=== PATIENT | male | born 1980 | race Caucasian/White ===

== ENCOUNTER 2019-11-17 20:06 | Inpatient (IN) | payer BC, OTHER ==
[2019-11-17] MEDS ORDERED: Haloperidol Lactate 5 MG/ML SDV IM ONE (20:08)
[2019-11-17] MEDS ORDERED: diphenhydrAMINE 50 MG/ML SDV IVPUSH ONE (20:08)
[2019-11-17] MEDS ORDERED: Famotidine 20 MG/2 ML SDV IVPUSH ONE (20:09)
[2019-11-17] MEDS ORDERED: Lactated Ringers 1,000 ML IV ONE (20:10)
[2019-11-17] MEDS ORDERED: Sodium Chloride 0.9% 10 ML Syringe FLUSH PRN (20:10)
[2019-11-17] MEDS ORDERED: Sodium Chloride 0.9% 2.5 ML Syringe FLUSH PRN (20:10)
[2019-11-17] MEDS ORDERED: HYDROmorphone 2 MG/ML Syringe IVPUSH ONE (20:28)
[2019-11-17 20:55] LABS: BLOOD UREA NITROGEN,BUN 12 mg/dL (7.0-18.0); CARBON DIOXIDE,CO2 18.3 mmol/L (21.0-32.0); CHLORIDE,CL 99 mmol/L (98-107); GLUCOSE RANDOM 219 mg/dL (74-106); LIPASE 525 U/L (73-393); POTASSIUM,K 3.3 mmol/L (3.5-5.1); SODIUM,NA 136 mmol/L (136-148)
[2019-11-17] MEDS ORDERED: Iopamidol 755 Mg/ML 100 ML Bottle IVPUSH STA (21:30)
--- NOTE | 2019-11-17 22:08 | CT ---
INDICATION: Epigastric pain for 1 day. History of gastric bypass in 2018. COMPARISON: None available TECHNIQUE: CT examination of the abdomen and pelvis was performed with the uneventful intravenous administration of 100 cc of Isovue 370 while 3 mm thick axial sections were obtained from the lung bases through the pubic symphysis. Oral contrast was not administered. Please note that all CT scans at this facility use dose modulation, iterative reconstruction, and/or weight-based dosing when appropriate to reduce radiation dose to as low as reasonably achievable. FINDINGS: In the abdomen, the liver, spleen, pancreas, and ADRENALS are normal in appearance. The kidneys are normal in appearance. The gallbladder is normal in appearance. The abdominal aorta is normal in caliber with no sign of dilatation. There is no sign of retroperitoneal mass or adenopathy. There are multiple lines of surgical anai in the area of the gastric fundus consistent with gastric bypass surgery. There is a small bowel anastomosis in the left upper quadrant with no sign of any structure. An additional small bowel anastomosis is seen in the left lower quadrant and left upper pelvis, again without stricture. The distal stomach, the rest of the loops of small bowel, and colon in the abdomen are normal in appearance. There is a small fat containing periumbilical hernia. The retrocecal appendix is seen anterior to the right kidney. It is normal in appearance, with no sign of any inflammatory process. The loops of small bowel and colon in the pelvis are normal in appearance. The prostate is moderately enlarged and is otherwise normal in appearance. The urinary bladder is normal in appearance. There is no sign of pelvic or inguinal mass or adenopathy. There is fluid in the mildly distended left inguinal canal with inflammatory stranding of the fat located in the superior right inguinal canal, suggesting infarction of fat herniated into a small right direct inguinal hernia. There is a small fat containing left indirect inguinal hernia. There is no sign of free air or free fluid in the abdomen or pelvis. The lung bases are clear. There is mild scoliosis of the thoracic and lumbar spine convex towards the left. There is mild disc degenerative disease at L1-2, L4-5, and L5-S1. IMPRESSION: CT of the abdomen shows satisfactory appearance of changes of gastric bypass surgery with no sign of bowel distention or bowel leak. No sign of a hiatal hernia. Patent small bowel anastomoses in the left upper quadrant and the left lower quadrant/left upper pelvis. CT of the pelvis shows moderate enlargement of the prostate. Fluid and edematous fat in the right inguinal canal consistent with probable infarction of peritoneal fat located within a small direct inguinal hernia. Small direct left inguinal hernia. Please note that all CT scans at this facility use dose modulation, iterative reconstruction, and/or weight-based dosing when appropriate to reduce radiation dose to as low as reasonably achievable. Dictated by Abe Philip MD @ Nov 17 2019 9:58PM Signed by Dr. Abe Philip @ Nov 17 2019 10:07PM
[2019-11-17] MEDS ORDERED: Morphine 4 MG/ML Syringe IVPUSH ONE (22:35)
[2019-11-17] MEDS ORDERED: Potassium Chloride Riders 40 MEQ in Premix Bag 1 BAG IV ONE (22:59)
[2019-11-17] MEDS ORDERED: Albuterol/Ipratropium 3.0-0.5 MG/3 ML Neb Soln NEB PRN (23:00)
[2019-11-17] MEDS ORDERED: Lactated Ringers 1,000 ML IV SCH (23:00)
[2019-11-18] MEDS: HYDROmorphone 2 MG/ML Syringe IVPUSH PRN ×3 (00:09→05:08)
[2019-11-18] MEDS: Ondansetron 4 MG/2 ML SDV IVPUSH PRN ×6 (00:12→22:20)
[2019-11-18] MEDS: Pantoprazole 40 MG in Sodium Chloride 0.9% 10 ML IV SCH ×2 (00:38→22:23)
[2019-11-18] MEDS: Enoxaparin 40 MG/0.4 ML Syringe SUBCUT SCH ×2 (00:40→22:23)
--- NOTE | 2019-11-18 04:26 | EDM.PDOC ---
ED HPI GENERAL MEDICAL PROBLEM - General Chief Complaint: Abdominal Pain Stated Complaint: ABDOMINAL PAIN Time Seen by Provider: 11/17/19 20:08 - History of Present Illness INITIAL COMMENTS - FREE TEXT/NARRATIVE: CHIEF COMPLAINT(S): Abdominal pain HISTORY OF PRESENT ILLNESS: This is a 38-year-old man without any reported past medical history who comes to the emergency department with a chief complaint of abdominal pain. The patient states that he is experiencing abdominal pain in the epigastric and left upper quadrant region. He states that this pain is going on for approximately 2 to 3 days. He states that he was evaluated by his PCP who stated that he had a stomach virus. He states that he tested for coronavirus as it was negative. He states that he has not had any nausea or vomiting but states that this pain is unrelenting. He denies any history of peptic ulcer disease, gastritis, or alcohol abuse. He denies any history of pancreatitis. He states that he has not had any hematochezia or melena. He states that he has not tried any pain medications. He describes the pain as sharp without any radiation. He describes the pain as 10 out of 10 and unrelenting. He denies any aggravating factors. He denies any relieving factors. REVIEW OF SYSTEMS: Constitutional: Denies fever, chills. Eyes: Denies eye pain Ears, Nose, Mouth, & Throat: Denies earache Cardiovascular: Denies chest pain Respiratory: Denies shortness of breath Gastrointestinal: Positive for abdominal pain. Denies nausea, vomiting, diarrhea, hematochezia, melena, hematemesis Genitourinary: Denies hematuria Skin:Denies a rash Neurological: Denies blurred vision Psychiatric: Denies depression PAST MEDICAL HISTORY: As per history of present illness and as reviewed below otherwise noncontributory. SURGICAL HISTORY: As per history of present illness and as reviewed below otherwise noncontributory. SOCIAL HISTORY: As per history of present illness and as reviewed below otherwise noncontributory. FAMILY HISTORY: As per history of present illness and as reviewed below otherwise noncontributory. EXAMINATION OF ORGAN SYSTEMS/BODY AREAS: Constitutional: Blood pressure was 146/96, heart rate 104, respiratory rate 24 with an oxygen saturation of 100% on room air. Temperature 35.8 General: Young man who is writhing around in pain on the stretcher and moaning Psychiatric: Appropriate mood and affect. Eyes: No scleral icterus or conjunctival erythema ENMT: Moist mucous membranes. No pharyngeal erythema Cardiovascular: Tachycardic but regular no gallops, murmurs, or rubs. Bilateral upper extremity pulses symmetric and intact. No peripheral edema. No JVD. Respiratory: Lungs clear to auscultation bilaterally. No wheezes, rales, or rhonchi. Gastrointestinal: Soft, diffusely tender to palpation, nondistended. No rebound or guarding. Negative Pinedo's and McBurney's. Normoactive bowel sounds Genitourinary: No suprapubic tenderness Musculoskeletal: Normal range of motion. Skin: No lesions or abrasions. Neurological: Alert, GCS 15 MEDICAL DECISION MAKING AND COURSE IN THE ED WITH INTERPRETATION/REVIEW OF DIAGNOSTIC STUDIES: This is a 38-year-old man without any significant past medical history who comes to the emergency department with 3 days of unrelenting epigastric and left upper quadrant pain with a nonsurgical abdomen on examination who is mildly tachycardic. At this time we will provide the patient with Haldol and Benadryl for pain relief. We will obtain CBC, CMP, and lipase. Will start 1 L of lactated Ringer's bolus. Laboratory: CBC reveals a leukocytosis of 11.7 otherwise unremarkable. CMP reveals hypokalemia at 3.3 and metabolic acidosis with a bicarbonate of 18.3. Troponin is negative. Lipase is elevated at 525. Coronavirus is negative. On reevaluation the patient continued to have unrelenting pain therefore I provided the patient with 1 mg of IV Dilaudid. At this time given the continued pain will obtain a CT abdomen pelvis. The patient does have indication of pancreatitis on laboratory analysis. The radiological images were viewed by myself along with reading the report from the radiologist. CT abdomen pelvis reveals satisfactory appearance of the gastric bypass surgery with no signs of bowel distention or bowel leak. There is no signs of hiatal hernia. There is a patent small bowel anastomoses in the left upper quadrant and left lower quadrant. There is enlargement of the prostate and fluid and edematous fat in the right inguinal canal consistent with probable infarction of peritoneal fat located within a small direct hernia On reevaluation, the patient was sleeping comfortably on the stretcher however given his acute pancreatitis I did discuss with him I like to admit him to the hospital. He was amenable to this plan. Therefore I contacted Dr. Andres and she accepted the patient DISPOSITION: The patient was admitted to the hospital in stable condition CONDITION: Fair PROCEDURES: None FINAL IMPRESSION(S)/DIAGNOSES: 1. Acute epigastric pain secondary to acute pancreatitis 2. Acute metabolic acidosis likely secondary to #1 Heladio Ivey M.D. Abdominal Pain Score (Numeric/FACES): 2 - Related Data Allergies Allergy/AdvReac Type Severity Reaction Status Date / Time amoxicillin Allergy Other Verified 11/18/19 00:26 Penicillins Allergy Other Verified 11/18/19 00:26 Home Meds: Home Meds . [No Known Home Meds] 11/18/19 [History] Past Medical History - Infectious Disease History Infectious Disease History: Reports: None - Past Surgical History GI Surgical History: Reports: Bariatric Procedure, Hernia, Abdominal, Hernia, Inguinal Social & Family History - Family History Family Medical History: Noncontributory - Tobacco Use Smoking Status *Q: Never Smoker - Caffeine Use Caffeine Use: Reports: None - Recreational Drug Use Recreational Drug Use: No ED ROS GENERAL - Review of Systems Review Of Systems: See Below ED EXAM, GENERAL - Physical Exam Exam: See Below Course - Vital Signs Last Recorded V/S: Last Vital Signs Temp 36.0 C L 11/18/19 00:49 Pulse 73 11/18/19 00:49 Resp 18 11/18/19 00:49 BP 148/89 H 11/18/19 00:49 Pulse Ox 96 11/18/19 00:49 - Orders/Labs/Meds Orders: Active Orders 24 hr Category Date Time Status Admission Status [Patient Status] [ADT] Stat ADT 11/17/19 22:34 Active Ambulate [RC] ASDIRECTED Care 11/17/19 23:00 Active Antiembolic Devices [RC] PER UNIT ROUTINE Care 11/17/19 23:01 Active Blood Glucose Check, Bedside [RC] Q6HR Care 11/17/19 23:01 Active Oxygen Therapy [RC] PRN Care 11/17/19 23:00 Active Pulse Oximetry [RC] PRN Care 11/17/19 23:00 Active RT Aerosol Therapy [RC] ASDIRECTED Care 11/17/19 23:01 Active VTE/DVT Education [RC] PER UNIT ROUTINE Care 11/17/19 23:00 Active Vital Signs [RC] Q4H Care 11/17/19 23:00 Active Nothing per Oral Now Diet [DIET] Diet 11/17/19 Dinner Active BMP [BASIC METABOLIC PANEL,BMP] [CHEM] AM Lab 11/18/19 05:11 Ordered CBC WITH AUTO DIFF [HEME] AM Lab 11/18/19 05:11 Ordered MAGNESIUM [CHEM] AM Lab 11/18/19 05:11 Ordered PHOSPHORUS [CHEM] AM Lab 11/18/19 05:11 Ordered Albuterol/Ipratropium [DuoNeb 3.0-0.5 MG/3 ML] Med 11/17/19 23:00 Active 3 ml NEB Q4HRRT PRN Enoxaparin [Lovenox] Med 11/17/19 23:00 Active 40 mg SUBCUT Q24H HYDROmorphone [Dilaudid] Med 11/17/19 23:00 Active 0.5 mg IVPUSH Q3H PRN Lactated Ringers [Ringers, Lactated] 1,000 ml Med 11/17/19 23:00 Active IV ASDIRECTED Ondansetron [Zofran] Med 11/17/19 23:00 Active 4 mg IVPUSH Q4H PRN Pantoprazole [ProTONIX IV] 40 mg Med 11/17/19 23:15 Active Sodium Chloride 0.9% [Normal Saline] 10 ml IV Q24H Sodium Chloride 0.9% [Saline Flush] Med 11/17/19 20:10 Active 10 ml FLUSH ASDIRECTED PRN Sodium Chloride 0.9% [Saline Flush] Med 11/17/19 20:10 Active 2.5 ml FLUSH ASDIRECTED PRN Saline Lock Insert [OM.PC] Stat Oth 11/17/19 20:10 Ordered Sequential Compression Device [OM.PC] Per Unit Routine Oth 11/17/19 23:00 Ordered Medication Orders Albuterol/Ipratropium (Duoneb 3.0-0.5 Mg/3 Ml) 3 ml NEB Q4HRRT PRN PRN Reason: Shortness Of Breath/wheezing Enoxaparin Sodium (Lovenox) 40 mg SUBCUT Q24H ALEXI Last Admin: 11/18/19 00:40 Dose: 40 mg Documented by: DIYA Hydromorphone HCl (Dilaudid) 0.5 mg IVPUSH Q3H PRN PRN Reason: Pain (severe 7-10) Last Admin: 11/18/19 02:37 Dose: 0.5 mg Documented by: Admin: 11/18/19 00:09 Dose: 0.5 mg Documented by: CADE Lactated Ringer's (Ringers, Lactated) 1,000 mls @ 125 mls/hr IV ASDIRECTED ALEXI Last Admin: 11/18/19 00:37 Dose: 125 mls/hr Documented by: DIYA Pantoprazole Sodium 40 mg/ (Sodium Chloride) 10 mls @ 300 mls/hr IV Q24H ALEXI Last Admin: 11/18/19 00:38 Dose: 300 mls/hr Documented by: DYIA Influenza Virus Vaccine (Afluria Quad 2019- (3yr Up)) 60 mcg IM .ONCE ONE Stop: 11/18/19 09:01 Ondansetron HCl (Zofran) 4 mg IVPUSH Q4H PRN PRN Reason: Nausea/Vomiting Last Admin: 11/18/19 04:13 Dose: 4 mg Documented by: Admin: 11/18/19 00:13 Dose: 4 mg Documented by: Admin: 11/18/19 00:12 Dose: 4 mg Documented by: CADE Sodium Chloride (Saline Flush) 10 ml FLUSH ASDIRECTED PRN PRN Reason: Keep Vein Open Last Admin: 11/17/19 20:17 Dose: 10 ml Documented by: CADE Sodium Chloride (Saline Flush) 2.5 ml FLUSH ASDIRECTED PRN PRN Reason: Keep Vein Open Last Admin: 11/17/19 20:17 Dose: 2.5 ml Documented by: CADE Labs: Laboratory Tests 11/17/19 11/17/19 11/17/19 Range/Units 20:24 20:24 20:24 WBC 11.70 H (4.0-11.0) K/uL RBC 4.76 (4.50-5.90) M/uL Hgb 12.9 L (13.0-17.0) g/dL Hct 39.3 (38.0-50.0) % MCV 82.6 (80.0-98.0) fL MCH 27.1 (27.0-32.0) pg MCHC 32.8 (31.0-37.0) g/dL RDW Std Deviation 36.8 (28.0-62.0) fl RDW Coeff of Alicja 12 (11.0-15.0) % Plt Count 388 (150-400) K/uL MPV 10.70 (7.40-12.00) fL Neut % (Auto) 86.9 H (48.0-80.0) % Lymph % (Auto) 6.3 L (16.0-40.0) % [place] % (Auto) 6.4 (0.0-15.0) % Eos % (Auto) 0.2 (0.0-7.0) % Baso % (Auto) 0.2 (0.0-1.5) % Neut # (Auto) 10.2 H (1.4-5.7) K/uL Lymph # (Auto) 0.7 (0.6-2.4) K/uL [place] # (Auto) 0.8 (0.0-0.8) K/uL Eos # (Auto) 0.0 (0.0-0.7) K/uL Baso # (Auto) 0.0 (0.0-0.1) K/uL Nucleated RBC % 0.0 /100WBC Nucleated RBCs # 0 K/uL Sodium 136 (136-148) mmol/L Potassium 3.3 L (3.5-5.1) mmol/L Chloride 99 (98-107) mmol/L Carbon Dioxide 18.3 L (21.0-32.0) mmol/L BUN 12 (7.0-18.0) mg/dL Creatinine 1.3 (0.8-1.3) mg/dL Est Cr Clr Drug Dosing 86.22 mL/min Estimated GFR (MDRD) > 60.0 ml/min Glucose 219 H (74-106) mg/dL Calcium 9.3 (8.5-10.1) mg/dL Total Bilirubin 0.6 (0.2-1.0) mg/dL AST 17 (15-37) IU/L ALT 29 (14-63) IU/L Alkaline Phosphatase 61 (46-116) U/L Troponin I < 0.050 (0.000-0.056) ng/mL Total Protein 7.3 (6.4-8.2) g/dL Albumin 4.5 (3.4-5.0) g/dL Globulin 2.8 (2.6-4.0) g/dL Albumin/Globulin Ratio 1.6 (0.9-1.6) Lipase 525 H (73-393) U/L SARS-CoV-2 RNA (BARBY) (NEGATIVE) 11/17/19 Range/Units 22:30 WBC (4.0-11.0) K/uL RBC (4.50-5.90) M/uL Hgb (13.0-17.0) g/dL Hct (38.0-50.0) % MCV (80.0-98.0) fL MCH (27.0-32.0) pg MCHC (31.0-37.0) g/dL RDW Std Deviation (28.0-62.0) fl RDW Coeff of Alicja (11.0-15.0) % Plt Count (150-400) K/uL MPV (7.40-12.00) fL Neut % (Auto) (48.0-80.0) % Lymph % (Auto) (16.0-40.0) % [place] % (Auto) (0.0-15.0) % Eos % (Auto) (0.0-7.0) % Baso % (Auto) (0.0-1.5) % Neut # (Auto) (1.4-5.7) K/uL Lymph # (Auto) (0.6-2.4) K/uL [place] # (Auto) (0.0-0.8) K/uL Eos # (Auto) (0.0-0.7) K/uL Baso # (Auto) (0.0-0.1) K/uL Nucleated RBC % /100WBC Nucleated RBCs # K/uL Sodium (136-148) mmol/L Potassium (3.5-5.1) mmol/L Chloride (98-107) mmol/L Carbon Dioxide (21.0-32.0) mmol/L BUN (7.0-18.0) mg/dL Creatinine (0.8-1.3) mg/dL Est Cr Clr Drug Dosing mL/min Estimated GFR (MDRD) ml/min Glucose (74-106) mg/dL Calcium (8.5-10.1) mg/dL Total Bilirubin (0.2-1.0) mg/dL AST (15-37) IU/L ALT (14-63) IU/L Alkaline Phosphatase (46-116) U/L Troponin I (0.000-0.056) ng/mL Total Protein (6.4-8.2) g/dL Albumin (3.4-5.0) g/dL Globulin (2.6-4.0) g/dL Albumin/Globulin Ratio (0.9-1.6) Lipase (73-393) U/L SARS-CoV-2 RNA (BARBY) NEGATIVE (NEGATIVE) Meds: Medications Generic Name Dose Route Start Last Admin Trade Name Freq PRN Reason Stop Dose Admin Albuterol/Ipratropium 3 ml 11/17/19 23:00 Duoneb 3.0-0.5 Mg/3 Ml NEB Q4HRRT PRN Shortness Of Breath/wheezing Enoxaparin Sodium 40 mg 11/17/19 23:00 11/18/19 00:40 Lovenox SUBCUT 40 mg Q24H ALEXI Administration Hydromorphone HCl 0.5 mg 11/17/19 23:00 11/18/19 02:37 Dilaudid IVPUSH 0.5 mg Q3H PRN Administration Pain (severe 7-10) Lactated Ringer's 1,000 mls @ 125 mls/hr 11/17/19 23:00 11/18/19 00:37 Ringers, Lactated IV 125 mls/hr ASDIRECTED ALEXI Administration Pantoprazole Sodium 40 mg/ 10 mls @ 300 mls/hr 11/17/19 23:15 11/18/19 00:38 Sodium Chloride IV 300 mls/hr Q24H ALEXI Administration Influenza Virus Vaccine 60 mcg 11/18/19 09:00 Afluria Quad 2020-21 (3yr Up) IM 11/18/19 09:01 .ONCE ONE Ondansetron HCl 4 mg 11/17/19 23:00 11/18/19 04:13 Zofran IVPUSH 4 mg Q4H PRN Administration Nausea/Vomiting Sodium Chloride 10 ml 11/17/19 20:10 11/17/19 20:17 Saline Flush FLUSH 10 ml ASDIRECTED PRN Administration Keep Vein Open Sodium Chloride 2.5 ml 11/17/19 20:10 11/17/19 20:17 Saline Flush FLUSH 2.5 ml ASDIRECTED PRN Administration Keep Vein Open Discontinued Medications Generic Name Dose Route Start Last Admin Trade Name Enriqueq PRN Reason Stop Dose Admin Diphenhydramine HCl 50 mg 11/17/19 20:08 11/17/19 20:16 Benadryl IVPUSH 11/17/19 20:09 50 mg ONETIME ONE Administration Famotidine 20 mg 11/17/19 20:09 11/17/19 20:16 Pepcid IVPUSH 11/17/19 20:10 20 mg ONETIME ONE Administration Haloperidol Lactate 5 mg 11/17/19 20:08 11/17/19 20:16 Haldol IM 11/17/19 20:09 5 mg ONETIME ONE Administration Hydromorphone HCl 1 mg 11/17/19 20:28 11/17/19 20:32 Dilaudid IVPUSH 11/17/19 20:29 1 mg ONETIME ONE Administration Lactated Ringer's 1,000 mls @ 999 mls/hr 11/17/19 20:10 11/17/19 20:15 Ringers, Lactated IV 11/17/19 21:10 999 mls/hr .BOLUS ONE Administration Potassium Chloride 40 meq/ 100 mls @ 25 mls/hr 11/17/19 22:59 11/18/19 01:29 Premix IV 11/18/19 02:58 25 mls/hr ONETIME ONE Administration Iopamidol 100 ml 11/17/19 21:30 11/17/19 21:30 Isovue-370 (76%) IVPUSH 11/17/19 21:31 100 ml ONETIME STA Administration Morphine Sulfate 4 mg 11/17/19 22:35 11/17/19 22:44 Morphine IVPUSH 11/17/19 22:36 4 mg ONETIME ONE Administration Departure - Departure Time of Disposition: 22:34 Disposition: Refer to Observation Clinical Impression: Pancreatitis Qualifiers: Chronicity: acute Pancreatitis type: unspecified pancreatitis type Acute pancreatitis complication: no infection or necrosis Qualified Code(s): K85.90 - Acute pancreatitis without necrosis or infection, unspecified - Discharge Information Sepsis Event Note (ED) - Evaluation Sepsis Screening Result: No Definite Risk - Focused Exam Vital Signs: Vital Signs Temp Pulse Resp BP Pulse Ox 11/17/19 20:09 35.8 C L 104 H 24 H 146/96 H 100 - My Orders Last 24 Hours: My Active Orders 11/17/19 20:10 Sodium Chloride 0.9% [Saline Flush] 10 ml FLUSH ASDIRECTED PRN Sodium Chloride 0.9% [Saline Flush] 2.5 ml FLUSH ASDIRECTED PRN Saline Lock Insert [OM.PC] Stat 11/17/19 22:34 Admission Status [Patient Status] [ADT] Stat - Assessment/Plan Last 24 Hours: My Active Orders 11/17/19 20:10 Sodium Chloride 0.9% [Saline Flush] 10 ml FLUSH ASDIRECTED PRN Sodium Chloride 0.9% [Saline Flush] 2.5 ml FLUSH ASDIRECTED PRN Saline Lock Insert [OM.PC] Stat 11/17/19 22:34 Admission Status [Patient Status] [ADT] Stat
[2019-11-18] MEDS ORDERED: Haloperidol Lactate 5 MG/ML SDV IM ONE (05:30)
[2019-11-18] MEDS ORDERED: HYDROmorphone 1 MG/ML Syringe IVPUSH ONE (05:30)
[2019-11-18] MEDS ORDERED: diphenhydrAMINE 50 MG/ML SDV IVPUSH ONE (05:31)
[2019-11-18 07:03] LABS: BLOOD UREA NITROGEN,BUN 12 mg/dL (7.0-18.0); CHLORIDE,CL 99 mmol/L (98-107); GLUCOSE RANDOM 172 mg/dL (74-106); POTASSIUM,K 3.9 mmol/L (3.5-5.1); SODIUM,NA 136 mmol/L (136-148)
--- NOTE | 2019-11-18 08:03 | PCM.HP.2 ---
H&P History of Present Illness - General Date of Service: 11/18/19 Admit Problem/Dx: Admission Diagnosis/Problem Admission Diagnosis/Problem Pancreatitis Source of Information: Patient History Limitations: Reports: No Limitations - History of Present Illness Initial Comments - Free Text/Narative: This 38-year-old male with past medical history of hypertension, gastric bypass, and abdominal hernia repair presented to the ER last evening with concerns of severe abdominal pain. This pain is located in the epigastric and left upper quadrant. He reports nausea and vomiting along with this and loss of appetite. He denies any diarrhea black or bloody bowel movements and no coffee-ground emesis. He reports that this has been going on for the last few days with worsening last night. He denies any history of this in the past. His gastric bypass was 1 year ago. Nothing makes the pain better except for rest. And eating makes it worse. He reports the pain is radiating to the back. No chest pain or shortness of breath no fevers or chills. No lower abdominal pain. No dysuria or trouble with urination. He denies alcohol use. Denies any current tobacco use was a previous smoker. No recreational drug use. In the ER lab work was obtained mild leukocytosis at 11,700 noted. Lipase was found to be elevated at 525. CT of his abdomen and pelvis were obtained which shows Nothing acute with pancreas. 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 He was given IV pain medication along with IV fluids. He will be admitted for acute pancreatitis. COVID swab negative in the ER. Abdominal Pain Score (Numeric/FACES): 2 - Related Data Allergies/Adverse Reactions: Allergies Allergy/AdvReac Type Severity Reaction Status Date / Time amoxicillin Allergy Other Verified 11/18/19 00:26 Penicillins Allergy Other Verified 11/18/19 00:26 Home Medications: Home Meds . [No Known Home Meds] 11/18/19 [History] Past Medical History - Infectious Disease History Infectious Disease History: Reports: None - Past Surgical History GI Surgical History: Reports: Bariatric Procedure, Hernia, Abdominal, Hernia, Inguinal Social & Family History - Family History Family Medical History: Noncontributory - Tobacco Use Smoking Status *Q: Never Smoker - Caffeine Use Caffeine Use: Reports: None - Recreational Drug Use Recreational Drug Use: No H&P Review of Systems - Review of Systems: Review Of Systems: See Below General: Denies: Fever, Chills, Malaise HEENT: Reports: No Symptoms. Denies: Headaches, Vertigo Pulmonary: Reports: No Symptoms. Denies: Shortness of Breath, Cough, Sputum Cardiovascular: Reports: No Symptoms Gastrointestinal: Reports: Abdominal Pain, Decreased Appetite, Nausea, Vomiting. Denies: Black Stool, Bloody Stool, Diarrhea, Melena Genitourinary: Reports: No Symptoms. Denies: Dysuria, Frequency, Burning Musculoskeletal: Reports: No Symptoms. Denies: Arm Pain, Back Pain Skin: Reports: No Symptoms Psychiatric: Reports: No Symptoms Neurological: Reports: No Symptoms Hematologic/Lymphatic: Reports: No Symptoms Immunologic: Reports: No Symptoms Exam - Exam Exam: See Below - Vital Signs Vital Signs: Last Vital Signs Temp 96.7 F L 11/18/19 04:33 Pulse 103 H 11/18/19 04:33 Resp 20 11/18/19 04:33 BP 168/108 H 11/18/19 04:33 Pulse Ox 99 11/18/19 04:33 Weight: 101 kg - Exam General: Alert, Oriented, Cooperative HEENT: Conjunctiva Clear, Mucosa Moist & [place], Posterior Pharynx Clear Lungs: Clear to Auscultation, Normal Respiratory Effort Cardiovascular: Regular Rate, Regular Rhythm GI/Abdominal Exam: Normal Bowel Sounds, Soft, Tender (LUQ and epigastric) Back Exam: Normal Inspection, Full Range of Motion Extremities: Normal Inspection, Normal Range of Motion, Non-Tender, No Pedal Edema Neuro Extensive - Mental Status: Alert, Oriented x3 Neuro Extensive - Motor, Sensory, Reflexes: CN II-XII Intact Psychiatric: Alert, Normal Affect, Normal Mood - Patient Data Lab Results Last 24 hrs: Laboratory Results - last 24 hr 11/17/19 11/17/19 11/17/19 Range/Units 20:24 20:24 20:24 WBC 11.70 H (4.0-11.0) K/uL RBC 4.76 (4.50-5.90) M/uL Hgb 12.9 L (13.0-17.0) g/dL Hct 39.3 (38.0-50.0) % MCV 82.6 (80.0-98.0) fL MCH 27.1 (27.0-32.0) pg MCHC 32.8 (31.0-37.0) g/dL RDW Std Deviation 36.8 (28.0-62.0) fl RDW Coeff of Alicja 12 (11.0-15.0) % Plt Count 388 (150-400) K/uL MPV 10.70 (7.40-12.00) fL Neut % (Auto) 86.9 H (48.0-80.0) % Lymph % (Auto) 6.3 L (16.0-40.0) % Gila % (Auto) 6.4 (0.0-15.0) % Eos % (Auto) 0.2 (0.0-7.0) % Baso % (Auto) 0.2 (0.0-1.5) % Neut # (Auto) 10.2 H (1.4-5.7) K/uL Lymph # (Auto) 0.7 (0.6-2.4) K/uL Gila # (Auto) 0.8 (0.0-0.8) K/uL Eos # (Auto) 0.0 (0.0-0.7) K/uL Baso # (Auto) 0.0 (0.0-0.1) K/uL Nucleated RBC % 0.0 /100WBC Nucleated RBCs # 0 K/uL Sodium 136 (136-148) mmol/L Potassium 3.3 L (3.5-5.1) mmol/L Chloride 99 (98-107) mmol/L Carbon Dioxide 18.3 L (21.0-32.0) mmol/L BUN 12 (7.0-18.0) mg/dL Creatinine 1.3 (0.8-1.3) mg/dL Est Cr Clr Drug Dosing 86.22 mL/min Estimated GFR (MDRD) > 60.0 ml/min Glucose 219 H (74-106) mg/dL POC Glucose (60-110) mg/dL Calcium 9.3 (8.5-10.1) mg/dL Phosphorus (2.6-4.7) mg/dL Magnesium (1.8-2.4) mg/dL Total Bilirubin 0.6 (0.2-1.0) mg/dL AST 17 (15-37) IU/L ALT 29 (14-63) IU/L Alkaline Phosphatase 61 (46-116) U/L Troponin I < 0.050 (0.000-0.056) ng/mL Total Protein 7.3 (6.4-8.2) g/dL Albumin 4.5 (3.4-5.0) g/dL Globulin 2.8 (2.6-4.0) g/dL Albumin/Globulin Ratio 1.6 (0.9-1.6) Lipase 525 H (73-393) U/L SARS-CoV-2 RNA (BARBY) (NEGATIVE) 11/17/19 11/18/19 11/18/19 Range/Units 22:30 01:57 05:57 WBC 11.00 (4.0-11.0) K/uL RBC 4.79 (4.50-5.90) M/uL Hgb 12.9 L (13.0-17.0) g/dL Hct 39.5 (38.0-50.0) % MCV 82.5 (80.0-98.0) fL MCH 26.9 L (27.0-32.0) pg MCHC 32.7 (31.0-37.0) g/dL RDW Std Deviation 37.2 (28.0-62.0) fl RDW Coeff of Alicja 12 (11.0-15.0) % Plt Count 389 (150-400) K/uL MPV 11.20 (7.40-12.00) fL Neut % (Auto) 88.6 H (48.0-80.0) % Lymph % (Auto) 6.4 L (16.0-40.0) % Gila % (Auto) 4.9 (0.0-15.0) % Eos % (Auto) 0.0 (0.0-7.0) % Baso % (Auto) 0.1 (0.0-1.5) % Neut # (Auto) 9.8 H (1.4-5.7) K/uL Lymph # (Auto) 0.7 (0.6-2.4) K/uL Gila # (Auto) 0.5 (0.0-0.8) K/uL Eos # (Auto) 0.0 (0.0-0.7) K/uL Baso # (Auto) 0.0 (0.0-0.1) K/uL Nucleated RBC % 0.0 /100WBC Nucleated RBCs # 0 K/uL Sodium (136-148) mmol/L Potassium (3.5-5.1) mmol/L Chloride (98-107) mmol/L Carbon Dioxide (21.0-32.0) mmol/L BUN (7.0-18.0) mg/dL Creatinine (0.8-1.3) mg/dL Est Cr Clr Drug Dosing mL/min Estimated GFR (MDRD) ml/min Glucose (74-106) mg/dL POC Glucose 128 H (60-110) mg/dL Calcium (8.5-10.1) mg/dL Phosphorus (2.6-4.7) mg/dL Magnesium (1.8-2.4) mg/dL Total Bilirubin (0.2-1.0) mg/dL AST (15-37) IU/L ALT (14-63) IU/L Alkaline Phosphatase (46-116) U/L Troponin I (0.000-0.056) ng/mL Total Protein (6.4-8.2) g/dL Albumin (3.4-5.0) g/dL Globulin (2.6-4.0) g/dL Albumin/Globulin Ratio (0.9-1.6) Lipase (73-393) U/L SARS-CoV-2 RNA (BARBY) NEGATIVE (NEGATIVE) 11/18/19 11/18/19 Range/Units 05:57 06:28 WBC (4.0-11.0) K/uL RBC (4.50-5.90) M/uL Hgb (13.0-17.0) g/dL Hct (38.0-50.0) % MCV (80.0-98.0) fL MCH (27.0-32.0) pg MCHC (31.0-37.0) g/dL RDW Std Deviation (28.0-62.0) fl RDW Coeff of Alicja (11.0-15.0) % Plt Count (150-400) K/uL MPV (7.40-12.00) fL Neut % (Auto) (48.0-80.0) % Lymph % (Auto) (16.0-40.0) % Gila % (Auto) (0.0-15.0) % Eos % (Auto) (0.0-7.0) % Baso % (Auto) (0.0-1.5) % Neut # (Auto) (1.4-5.7) K/uL Lymph # (Auto) (0.6-2.4) K/uL Gila # (Auto) (0.0-0.8) K/uL Eos # (Auto) (0.0-0.7) K/uL Baso # (Auto) (0.0-0.1) K/uL Nucleated RBC % /100WBC Nucleated RBCs # K/uL Sodium 136 (136-148) mmol/L Potassium 3.9 (3.5-5.1) mmol/L Chloride 99 (98-107) mmol/L Carbon Dioxide 26.0 (21.0-32.0) mmol/L BUN 12 (7.0-18.0) mg/dL Creatinine 0.9 (0.8-1.3) mg/dL Est Cr Clr Drug Dosing 124.54 mL/min Estimated GFR (MDRD) > 60.0 ml/min Glucose 172 H (74-106) mg/dL POC Glucose 150 H (60-110) mg/dL Calcium 9.2 (8.5-10.1) mg/dL Phosphorus 2.9 (2.6-4.7) mg/dL Magnesium 1.7 L (1.8-2.4) mg/dL Total Bilirubin (0.2-1.0) mg/dL AST (15-37) IU/L ALT (14-63) IU/L Alkaline Phosphatase (46-116) U/L Troponin I (0.000-0.056) ng/mL Total Protein (6.4-8.2) g/dL Albumin (3.4-5.0) g/dL Globulin (2.6-4.0) g/dL Albumin/Globulin Ratio (0.9-1.6) Lipase (73-393) U/L SARS-CoV-2 RNA (BARBY) (NEGATIVE) Result Diagrams: 11/18/19 05:57 11/18/19 05:57 Sepsis Event Note - Evaluation Sepsis Screening Result: No Definite Risk - Focused Exam Vital Signs: Vital Signs Temp Pulse Resp BP Pulse Ox 11/18/19 04:33 96.7 F L 103 H 20 168/108 H 99 11/18/19 00:49 96.8 F L 73 18 148/89 H 96 11/17/19 20:09 96.4 F L 104 H 24 H 146/96 H 100 - Problem List (1) HTN (hypertension) SNOMED Code(s): 62863753 ICD Code: I10 - ESSENTIAL (PRIMARY) HYPERTENSION Status: Acute Current Visit: Yes (2) Pancreatitis SNOMED Code(s): 70928995 ICD Code: K85.90 - ACUTE PANCREATITIS WITHOUT NECROSIS OR INFECTION, UNSP Status: Acute Current Visit: Yes Qualifiers: Chronicity: acute Pancreatitis type: unspecified pancreatitis type Acute pancreatitis complication: no infection or necrosis Qualified Code(s): K85.90 - Acute pancreatitis without necrosis or infection, unspecified Problem List Initiated/Reviewed/Updated: No Orders Last 24hrs: Active Orders 24 hr Category Date Time Status Admission Status [Patient Status] [ADT] Stat ADT 11/17/19 22:34 Active Ambulate [RC] ASDIRECTED Care 11/17/19 23:00 Active Antiembolic Devices [RC] PER UNIT ROUTINE Care 11/17/19 23:01 Active Blood Glucose Check, Bedside [RC] Q6HR Care 11/17/19 23:01 Active Influenza Vaccine Charge [RC] .DISCHARGE Care 11/18/19 10:00 Active Oxygen Therapy [RC] PRN Care 11/17/19 23:00 Active Pulse Oximetry [RC] PRN Care 11/17/19 23:00 Active RT Aerosol Therapy [RC] ASDIRECTED Care 11/17/19 23:01 Active VTE/DVT Education [RC] PER UNIT ROUTINE Care 11/17/19 23:00 Active Vital Signs [RC] Q4H Care 11/17/19 23:00 Active Nothing per Oral Now Diet [DIET] Diet 11/17/19 Dinner Active Albuterol/Ipratropium [DuoNeb 3.0-0.5 MG/3 ML] Med 11/17/19 23:00 Active 3 ml NEB Q4HRRT PRN Enoxaparin [Lovenox] Med 11/17/19 23:00 Active 40 mg SUBCUT Q24H FLU Vacc [id number] 36MOS UP/PF [Afluria Quad 2019- ( Med 11/18/19 09:00 Once 3YR UP)] 60 mcg IM .ONCE ONE HYDROmorphone [Dilaudid] Med 11/17/19 23:00 Active 0.5 mg IVPUSH Q3H PRN Lactated Ringers [Ringers, Lactated] 1,000 ml Med 11/17/19 23:00 Active IV ASDIRECTED Ondansetron [Zofran] Med 11/17/19 23:00 Active 4 mg IVPUSH Q4H PRN Pantoprazole [ProTONIX IV] 40 mg Med 11/17/19 23:15 Active Sodium Chloride 0.9% [Normal Saline] 10 ml IV Q24H Sodium Chloride 0.9% [Saline Flush] Med 11/17/19 20:10 Active 10 ml FLUSH ASDIRECTED PRN Sodium Chloride 0.9% [Saline Flush] Med 11/17/19 20:10 Active 2.5 ml FLUSH ASDIRECTED PRN Saline Lock Insert [OM.PC] Stat Oth 11/17/19 20:10 Ordered Sequential Compression Device [OM.PC] Per Unit Routine Oth 11/17/19 23:00 Ord ered Medication Orders Albuterol/Ipratropium (Duoneb 3.0-0.5 Mg/3 Ml) 3 ml NEB Q4HRRT PRN PRN Reason: Shortness Of Breath/wheezing Enoxaparin Sodium (Lovenox) 40 mg SUBCUT Q24H [facility] Last Admin: 11/18/19 00:40 Dose: 40 mg Documented by: DIYA Hydromorphone HCl (Dilaudid) 0.5 mg IVPUSH Q3H PRN PRN Reason: Pain (severe 7-10) Last Admin: 11/18/19 05:08 Dose: 0.5 mg Documented by: Admin: 11/18/19 02:37 Dose: 0.5 mg Documented by: Admin: 11/18/19 00:09 Dose: 0.5 mg Documented by: ACDE Lactated Ringer's (Ringers, Lactated) 1,000 mls @ 125 mls/hr IV ASDIRECTED ALEXI Last Admin: 11/18/19 00:37 Dose: 125 mls/hr Documented by: DIYA Pantoprazole Sodium 40 mg/ (Sodium Chloride) 10 mls @ 300 mls/hr IV Q24H ALEXI Last Admin: 11/18/19 00:38 Dose: 300 mls/hr Documented by: DIYA Influenza Virus Vaccine (Afluria Quad (3yr Up)) 60 mcg IM .ONCE ONE Stop: 11/18/19 09:01 Ondansetron HCl (Zofran) 4 mg IVPUSH Q4H PRN PRN Reason: Nausea/Vomiting Last Admin: 11/18/19 04:13 Dose: 4 mg Documented by: Admin: 11/18/19 00:13 Dose: 4 mg Documented by: Admin: 11/18/19 00:12 Dose: 4 mg Documented by: CADE Sodium Chloride (Saline Flush) 10 ml FLUSH ASDIRECTED PRN PRN Reason: Keep Vein Open Last Admin: 11/17/19 20:17 Dose: 10 ml Documented by: CADE Sodium Chloride (Saline Flush) 2.5 ml FLUSH ASDIRECTED PRN PRN Reason: Keep Vein Open Last Admin: 11/17/19 20:17 Dose: 2.5 ml Documented by: CADE Assessment/Plan Comment:: This 38-year-old male admitted with acute pancreatitis 1. Acute pancreatitis Obtain right upper quadrant ultrasound, which showed mild dilation of pancreatic duct. No stones or gallbladder wall thickening. Lipid panel normal Given 2 L LR bolus this morning will increase fluids to LR at 200 mils an hour Dilaudid for pain as needed - will add Toradol for pain as well as needed - Phenergan for nausea PRN - Zofran for nausea PRN - Bowel rest for now - CT findings of probably infarction of peritoneal fat, patient has no pain to lower abdomen or groin. 2. HTN: - Monitor with IVF fluid administration VTE prophylaxis: Lovenox Dispo: 2 -3 days, will change to inpatient as he will need longer than 2 midnight stay - Mortality Measure Prognosis:: Good
[2019-11-18] MEDS ORDERED: Sodium Chloride 0.9% 2.5 ML Syringe FLUSH PRN (08:07)
[2019-11-18] MEDS ORDERED: HYDROmorphone 1 MG/ML Syringe IVPUSH PRN (08:12)
[2019-11-18] MEDS ORDERED: Lactated Ringers 1,000 ML IV SCH (08:30)
[2019-11-18] MEDS ORDERED: FLU Vacc QS2020-21 36MOS UP/PF 60 MCG/0.5 ML Syringe IM ONE (09:00)
--- NOTE | 2019-11-18 09:16 | US ---
INDICATION: Elevated lipase. TECHNIQUE: Ultrasound abdomen limited. Sonographic images of the right upper quadrant were obtained using bowens-scale and color Doppler images. COMPARISON: CT abdomen pelvis November 17, 2019. FINDINGS: Liver: Normal in size and echotexture. No masses. No intrahepatic biliary dilatation. Gallbladder: No stones or sludge. Normal wall thickness. No pericholecystic fluid. Common bile duct: 3 mm. Pancreas: Short-segment prominence of the pancreatic duct is suspected in the head, however this is less evident on yesterday`s CT exam. Pancreas otherwise appears normal in appearance. Right kidney: Normal in size. Normal echotexture and cortex. No suspicious masses, stones, or hydronephrosis. Vasculature: Proximal abdominal aorta and IVC are normal. IMPRESSION: Possible focal dilatation of the proximal pancreatic duct. However, this is not verified on yesterday`s CT exam. Remainder of the pancreas in remainder of the exam are unremarkable. Dictated by Jose Manuel Escudero MD @ Nov 18 2019 9:08AM Signed by Dr. Jose Manuel Escudero @ Nov 18 2019 9:15AM
[2019-11-18] MEDS ORDERED: Morphine 4 MG/ML Syringe IVPUSH PRN (10:14)
[2019-11-18] MEDS: Lactated Ringers 1,000 ML IV SCH ×3 (10:54→21:59)
[2019-11-18] MEDS ORDERED: HYDROmorphone 2 MG/ML Syringe IVPUSH PRN ×2 (11:23→14:53)
[2019-11-18] MEDS ORDERED: Magnesium Sulfate/Water 2 GM/50 ML Premix Bag IV ONE (11:46)
[2019-11-18] MEDS: Ketorolac 15 MG/ML SDV IVPUSH PRN ×3 (11:53→21:59)
[2019-11-18] MEDS ORDERED: Magnesium Sulfate/Water 2 GM/50 ML BAG IV ONE (12:00)
[2019-11-18] MEDS: Promethazine 25 MG/ML SDV IM PRN ×2 (16:57→23:50)
[2019-11-19] MEDS: Lactated Ringers 1,000 ML IV SCH ×3 (00:59→10:11)
[2019-11-19] MEDS: Ketorolac 15 MG/ML SDV IVPUSH PRN (03:11)
[2019-11-19] MEDS: Ondansetron 4 MG/2 ML SDV IVPUSH PRN ×2 (03:39→16:22)
[2019-11-19 06:17] LABS: BLOOD UREA NITROGEN,BUN 13 mg/dL (7.0-18.0); CARBON DIOXIDE,CO2 26.6 mmol/L (21.0-32.0); CHLORIDE,CL 99 mmol/L (98-107); GLUCOSE RANDOM 143 mg/dL (74-106); POTASSIUM,K 3.9 mmol/L (3.5-5.1); SODIUM,NA 135 mmol/L (136-148)
[2019-11-19] MEDS ORDERED: Ketorolac 15 MG/ML SDV IVPUSH PRN (08:00)
[2019-11-19] MEDS ORDERED: Sodium Chloride 0.9% 500 ML IV SCH (09:45)
[2019-11-19] MEDS: Piperacillin/Tazobactam 3.375 GM in Sodium Chloride 0.9% 50 ML IV SCH ×2 (10:31→16:15)
--- NOTE | 2019-11-19 12:30 | PCM.PN ---
- General Info Date of Service: 11/19/19 Admission Dx/Problem (Free Text): Admission Diagnosis/Problem Admission Diagnosis/Problem Pancreatitis Subjective Update: feeling improved today. Nausea improved. No fevers or chills. No chest pain or SOB Functional Status: Reports: Ambulating, Urinating - Review of Systems General: Reports: Malaise Pulmonary: Reports: No Symptoms. Denies: Shortness of Breath Cardiovascular: Reports: No Symptoms. Denies: Chest Pain Gastrointestinal: Reports: Abdominal Pain, Nausea. Denies: Vomiting Genitourinary: Reports: No Symptoms Musculoskeletal: Reports: No Symptoms Skin: Reports: No Symptoms Neurological: Reports: No Symptoms Psychiatric: Reports: No Symptoms - Patient Data Vitals - Most Recent: Last Vital Signs Temp 98.6 F 11/19/19 10:15 Pulse 114 H 11/19/19 10:15 Resp 17 11/19/19 10:15 BP 174/102 H 11/19/19 10:15 Pulse Ox 96 11/19/19 10:15 Weight - Most Recent: 101 kg I&O - Last 24 Hours: Intake & Output 11/18/19 11/19/19 11/19/19 22:59 06:59 14:59 Intake Total 3950 2200 500 Output Total 500 500 Balance 3450 1700 500 Lab Results Last 24 Hours: Laboratory Results - last 24 hr 11/18/19 11/18/19 11/18/19 Range/Units 12:29 12:50 17:47 WBC (4.0-11.0) K/uL RBC (4.50-5.90) M/uL Hgb (13.0-17.0) g/dL Hct (38.0-50.0) % MCV (80.0-98.0) fL MCH (27.0-32.0) pg MCHC (31.0-37.0) g/dL RDW Std Deviation (28.0-62.0) fl RDW Coeff of [place] (11.0-15.0) % Plt Count (150-400) K/uL MPV (7.40-12.00) fL Neut % (Auto) (48.0-80.0) % Lymph % (Auto) (16.0-40.0) % [place] % (Auto) (0.0-15.0) % Eos % (Auto) (0.0-7.0) % Baso % (Auto) (0.0-1.5) % Neut # (Auto) (1.4-5.7) K/uL Lymph # (Auto) (0.6-2.4) K/uL [place] # (Auto) (0.0-0.8) K/uL Eos # (Auto) (0.0-0.7) K/uL Baso # (Auto) (0.0-0.1) K/uL Nucleated RBC % /100WBC Nucleated RBCs # K/uL Sodium (136-148) mmol/L Potassium (3.5-5.1) mmol/L Chloride (98-107) mmol/L Carbon Dioxide (21.0-32.0) mmol/L BUN (7.0-18.0) mg/dL Creatinine (0.8-1.3) mg/dL Est Cr Clr Drug Dosing mL/min Estimated GFR (MDRD) ml/min Glucose (74-106) mg/dL POC Glucose 116 H 111 H (60-110) mg/dL Calcium (8.5-10.1) mg/dL Magnesium (1.8-2.4) mg/dL Total Bilirubin (0.2-1.0) mg/dL AST (15-37) IU/L ALT (14-63) IU/L Alkaline Phosphatase (46-116) U/L Total Protein (6.4-8.2) g/dL Albumin (3.4-5.0) g/dL Globulin (2.6-4.0) g/dL Albumin/Globulin Ratio (0.9-1.6) Urine Color YELLOW Urine Appearance SLT CLOUDY Urine pH 7.5 (5.0-8.0) Ur Specific [place] 1.020 (1.001-1.035) Urine Protein NEGATIVE (NEGATIVE) mg/dL Urine Glucose (UA) NEGATIVE (NEGATIVE) mg/dL Urine Ketones TRACE H (NEGATIVE) mg/dL Urine Occult Blood NEGATIVE (NEGATIVE) Urine Nitrite NEGATIVE (NEGATIVE) Urine Bilirubin NEGATIVE (NEGATIVE) Urine Urobilinogen 0.2 (<2.0) EU/dL Ur Leukocyte Esterase NEGATIVE (NEGATIVE) 11/18/19 11/19/19 11/19/19 Range/Units 23:49 04:55 04:55 WBC 16.86 H (4.0-11.0) K/uL RBC 4.71 (4.50-5.90) M/uL Hgb 12.8 L (13.0-17.0) g/dL Hct 38.6 (38.0-50.0) % MCV 82.0 (80.0-98.0) fL MCH 27.2 (27.0-32.0) pg MCHC 33.2 (31.0-37.0) g/dL RDW Std Deviation 37.8 (28.0-62.0) fl RDW Coeff of [place] 13 (11.0-15.0) % Plt Count 401 H (150-400) K/uL MPV 10.90 (7.40-12.00) fL Neut % (Auto) 82.9 H (48.0-80.0) % Lymph % (Auto) 8.3 L (16.0-40.0) % [place] % (Auto) 8.6 (0.0-15.0) % Eos % (Auto) 0.1 (0.0-7.0) % Baso % (Auto) 0.1 (0.0-1.5) % Neut # (Auto) 14.0 H (1.4-5.7) K/uL Lymph # (Auto) 1.4 (0.6-2.4) K/uL [place] # (Auto) 1.5 H (0.0-0.8) K/uL Eos # (Auto) 0.0 (0.0-0.7) K/uL Baso # (Auto) 0.0 (0.0-0.1) K/uL Nucleated RBC % 0.0 /100WBC Nucleated RBCs # 0 K/uL Sodium 135 L (136-148) mmol/L Potassium 3.9 (3.5-5.1) mmol/L Chloride 99 (98-107) mmol/L Carbon Dioxide 26.6 (21.0-32.0) mmol/L BUN 13 (7.0-18.0) mg/dL Creatinine 0.9 (0.8-1.3) mg/dL Est Cr Clr Drug Dosing 124.54 mL/min Estimated GFR (MDRD) > 60.0 ml/min Glucose 143 H (74-106) mg/dL POC Glucose 125 H (60-110) mg/dL Calcium 8.9 (8.5-10.1) mg/dL Magnesium 1.8 (1.8-2.4) mg/dL Total Bilirubin 0.5 (0.2-1.0) mg/dL AST 16 (15-37) IU/L ALT 28 (14-63) IU/L Alkaline Phosphatase 56 (46-116) U/L Total Protein 7.0 (6.4-8.2) g/dL Albumin 4.0 (3.4-5.0) g/dL Globulin 3.0 (2.6-4.0) g/dL Albumin/Globulin Ratio 1.3 (0.9-1.6) Urine Color Urine Appearance Urine pH (5.0-8.0) Ur Specific [place] (1.001-1.035) Urine Protein (NEGATIVE) mg/dL Urine Glucose (UA) (NEGATIVE) mg/dL Urine Ketones (NEGATIVE) mg/dL Urine Occult Blood (NEGATIVE) Urine Nitrite (NEGATIVE) Urine Bilirubin (NEGATIVE) Urine Urobilinogen (<2.0) EU/dL Ur Leukocyte Esterase (NEGATIVE) 11/19/19 11/19/19 Range/Units 06:06 11:47 WBC (4.0-11.0) K/uL RBC (4.50-5.90) M/uL Hgb (13.0-17.0) g/dL Hct (38.0-50.0) % MCV (80.0-98.0) fL MCH (27.0-32.0) pg MCHC (31.0-37.0) g/dL RDW Std Deviation (28.0-62.0) fl RDW Coeff of [place] (11.0-15.0) % Plt Count (150-400) K/uL MPV (7.40-12.00) fL Neut % (Auto) (48.0-80.0) % Lymph % (Auto) (16.0-40.0) % [place] % (Auto) (0.0-15.0) % Eos % (Auto) (0.0-7.0) % Baso % (Auto) (0.0-1.5) % Neut # (Auto) (1.4-5.7) K/uL Lymph # (Auto) (0.6-2.4) K/uL [place] # (Auto) (0.0-0.8) K/uL Eos # (Auto) (0.0-0.7) K/uL Baso # (Auto) (0.0-0.1) K/uL Nucleated RBC % /100WBC Nucleated RBCs # K/uL Sodium (136-148) mmol/L Potassium (3.5-5.1) mmol/L Chloride (98-107) mmol/L Carbon Dioxide (21.0-32.0) mmol/L BUN (7.0-18.0) mg/dL Creatinine (0.8-1.3) mg/dL Est Cr Clr Drug Dosing mL/min Estimated GFR (MDRD) ml/min Glucose (74-106) mg/dL POC Glucose 144 H 119 H (60-110) mg/dL Calcium (8.5-10.1) mg/dL Magnesium (1.8-2.4) mg/dL Total Bilirubin (0.2-1.0) mg/dL AST (15-37) IU/L ALT (14-63) IU/L Alkaline Phosphatase (46-116) U/L Total Protein (6.4-8.2) g/dL Albumin (3.4-5.0) g/dL Globulin (2.6-4.0) g/dL Albumin/Globulin Ratio (0.9-1.6) Urine Color Urine Appearance Urine pH (5.0-8.0) Ur Specific [place] (1.001-1.035) Urine Protein (NEGATIVE) mg/dL Urine Glucose (UA) (NEGATIVE) mg/dL Urine Ketones (NEGATIVE) mg/dL Urine Occult Blood (NEGATIVE) Urine Nitrite (NEGATIVE) Urine Bilirubin (NEGATIVE) Urine Urobilinogen (<2.0) EU/dL Ur Leukocyte Esterase (NEGATIVE) Med Orders - Current: Current Medications Albuterol/Ipratropium (Duoneb 3.0-0.5 Mg/3 Ml) 3 ml NEB Q4HRRT PRN PRN Reason: Shortness Of Breath/wheezing Enoxaparin Sodium (Lovenox) 40 mg SUBCUT Q24H [facility] Last Admin: 11/18/19 22:23 Dose: 40 mg Documented by: Pantoprazole Sodium 40 mg/ (Sodium Chloride) 10 mls @ 300 mls/hr IV Q24H [facility] Last Admin: 11/18/19 22:23 Dose: 300 mls/hr Documented by: Lactated Ringer's (Ringers, Lactated) 1,000 mls @ 200 mls/hr IV Q5H [facility] Last Admin: 11/19/19 10:11 Dose: 200 mls/hr Documented by: Piperacillin Sod/Tazobactam (Sod 3.375 gm/ Sodium Chloride) 50 mls @ 100 mls/hr IV Q6H [facility] Last Admin: 11/19/19 10:31 Dose: 100 mls/hr Documented by: Ketorolac Tromethamine (Toradol) 15 mg IVPUSH Q6H PRN PRN Reason: Pain Ondansetron HCl (Zofran) 4 mg IVPUSH Q4H PRN PRN Reason: Nausea/Vomiting Last Admin: 11/19/19 03:39 Dose: 4 mg Documented by: Promethazine HCl (Phenergan) 12.5 mg IM Q6H PRN PRN Reason: Nausea Last Admin: 11/18/19 23:50 Dose: 12.5 mg Documented by: Sodium Chloride (Saline Flush) 2.5 ml FLUSH ASDIRECTED PRN PRN Reason: Keep Vein Open Discontinued Medications Diphenhydramine HCl (Benadryl) 50 mg IVPUSH ONETIME ONE Stop: 11/17/19 20:09 Last Admin: 11/17/19 20:16 Dose: 50 mg Documented by: Diphenhydramine HCl (Benadryl) 25 mg IVPUSH ONETIME ONE Stop: 11/18/19 05:32 Last Admin: 11/18/19 05:52 Dose: 25 mg Documented by: Famotidine (Pepcid) 20 mg IVPUSH ONETIME ONE Stop: 11/17/19 20:10 Last Admin: 11/17/19 20:16 Dose: 20 mg Documented by: Haloperidol Lactate (Haldol) 5 mg IM ONETIME ONE Stop: 11/17/19 20:09 Last Admin: 11/17/19 20:16 Dose: 5 mg Documented by: Haloperidol Lactate (Haldol) 5 mg IM ONETIME ONE Stop: 11/18/19 05:31 Last Admin: 11/18/19 05:52 Dose: 5 mg Documented by: Hydromorphone HCl (Dilaudid) 1 mg IVPUSH ONETIME ONE Stop: 11/17/19 20:29 Last Admin: 11/17/19 20:32 Dose: 1 mg Documented by: Hydromorphone HCl (Dilaudid) 0.5 mg IVPUSH Q3H PRN PRN Reason: Pain (severe 7-10) Last Admin: 11/18/19 05:08 Dose: 0.5 mg Documented by: Hydromorphone HCl (Dilaudid) 1 mg IVPUSH ONETIME ONE Stop: 11/18/19 05:31 Last Admin: 11/18/19 05:52 Dose: 1 mg Documented by: Hydromorphone HCl (Dilaudid) 0.5 mg IVPUSH Q3H PRN PRN Reason: Pain (severe 7-10) Last Admin: 11/18/19 08:24 Dose: 0.5 mg Documented by: Hydromorphone HCl (Dilaudid) 1 mg IVPUSH Q4H PRN PRN Reason: Pain Hydromorphone HCl (Dilaudid) 0.5 mg IVPUSH Q4H PRN PRN Reason: Pain Last Admin: 11/18/19 16:44 Dose: 0.5 mg Documented by: Lactated Ringer's (Ringers, Lactated) 1,000 mls @ 999 mls/hr IV .BOLUS ONE Stop: 11/17/19 21:10 Last Admin: 11/17/19 20:15 Dose: 999 mls/hr Documented by: Potassium Chloride 40 meq/ (Premix) 100 mls @ 25 mls/hr IV ONETIME ONE Stop: 11/18/19 02:58 Last Admin: 11/18/19 01:29 Dose: 25 mls/hr Documented by: Lactated Ringer's (Ringers, Lactated) 1,000 mls @ 125 mls/hr IV ASDIRECTED [facility] Last Admin: 11/18/19 00:37 Dose: 125 mls/hr Documented by: Lactated Ringer's (Ringers, Lactated) 1,000 mls @ 999 mls/hr IV BOLUS [facility] Stop: 11/19/19 09:31 Last Admin: 11/18/19 09:48 Dose: 999 mls/hr Documented by: Magnesium Sulfate (Magnesium Sulfate In Water Premix) 2 gm in 50 mls @ 50 mls/hr IV ONETIME ONE Stop: 11/18/19 12:59 Last Admin: 11/18/19 11:58 Dose: 50 mls/hr Documented by: Sodium Chloride (Normal Saline) 500 mls @ 999 mls/hr IV .BOLUS [facility] Last Admin: 11/19/19 09:39 Dose: 999 mls/hr Documented by: Influenza Virus Vaccine (Afluria Quad 2020-21 (3yr Up)) 60 mcg IM .ONCE ONE Stop: 11/18/19 09:01 Iopamidol (Isovue-370 (76%)) 100 ml IVPUSH ONETIME STA Stop: 11/17/19 21:31 Last Admin: 11/17/19 21:30 Dose: 100 ml Documented by: Ketorolac Tromethamine (Toradol) 15 mg IVPUSH Q6H PRN PRN Reason: Pain Stop: 11/23/19 11:24 Last Admin: 11/18/19 18:29 Dose: 15 mg Documented by: Ketorolac Tromethamine (Toradol) 15 mg IVPUSH Q4HR PRN PRN Reason: Pain Stop: 11/23/19 18:41 Last Admin: 11/19/19 03:11 Dose: 15 mg Documented by: Morphine Sulfate (Morphine) 4 mg IVPUSH ONETIME ONE Stop: 11/17/19 22:36 Last Admin: 11/17/19 22:44 Dose: 4 mg Documented by: Morphine Sulfate (Morphine) 4 mg IVPUSH Q3H PRN PRN Reason: Pain Sodium Chloride (Saline Flush) 10 ml FLUSH ASDIRECTED PRN PRN Reason: Keep Vein Open Last Admin: 11/17/19 20:17 Dose: 10 ml Documented by: Sodium Chloride (Saline Flush) 2.5 ml FLUSH ASDIRECTED PRN PRN Reason: Keep Vein Open Last Admin: 11/17/19 20:17 Dose: 2.5 ml Documented by: - Exam General: Alert, Oriented, Cooperative, No Acute Distress Lungs: Clear to Auscultation, Normal Respiratory Effort Cardiovascular: Regular Rate, Regular Rhythm GI/Abdominal Exam: Normal Bowel Sounds, Soft, Tender (epigastric and LUQ, improved but still there today) Extremities: Normal Inspection, Normal Range of Motion, Non-Tender, No Pedal Edema Neurological: No New Focal Deficit Psy/Mental Status: Alert, Normal Affect, Normal Mood Sepsis Event Note - Evaluation Sepsis Screening Result: Sepsis Risk - Focused Exam Vital Signs: Vital Signs Temp Pulse Resp BP BP Pulse Ox 11/19/19 10:15 98.6 F 114 H 17 174/102 H 96 11/19/19 09:52 126 H 16 162/100 H 95 11/19/19 08:20 99.2 F 135 H 16 166/104 H 96 11/19/19 07:30 99.2 F 118 H 17 169/110 H 96 11/19/19 04:38 97.8 F 73 17 163/70 H 97 - Problem List & Annotations (1) HTN (hypertension) SNOMED Code(s): 35754610 Code(s): I10 - ESSENTIAL (PRIMARY) HYPERTENSION Status: Acute Current Visit: Yes (2) Pancreatitis SNOMED Code(s): 05764903 Code(s): K85.90 - ACUTE PANCREATITIS WITHOUT NECROSIS OR INFECTION, UNSP Status: Acute Current Visit: Yes Qualifiers: Chronicity: acute Pancreatitis type: unspecified pancreatitis type Acute pancreatitis complication: no infection or necrosis Qualified Code(s): K85.90 - Acute pancreatitis without necrosis or infection, unspecified - Problem List Review Problem List Initiated/Reviewed/Updated: Yes - My Orders Last 24 Hours: My Active Orders 11/18/19 11:42 Patient Status [ADT] Stat 11/19/19 Breakfast Clear Liquid Diet [DIET] 11/19/19 10:00 Piperacillin/Tazobactam [Piperacil-Tazobact] 3.375 gm Sodium Chloride 0.9% [Normal Saline] 50 ml IV Q6H 11/19/19 12:29 Abdomen Pelvis w Cont [CT] Urgent 11/20/19 05:11 CBC WITH AUTO DIFF [HEME] AM COMPREHENSIVE METABOLIC PN,CMP [CHEM] AM MAGNESIUM [CHEM] AM 11/21/19 05:11 CBC WITH AUTO DIFF [HEME] AM COMPREHENSIVE METABOLIC PN,CMP [CHEM] AM MAGNESIUM [CHEM] AM - Plan Plan:: This 38-year-old male admitted with acute pancreatitis 1. Acute pancreatitis - lipase improving. Leukocytosis noted today with tachycardia. No obvious source of infection. - Repeat CT, add Zosyn for now. Given 500 ml bolus this morning, will repeat again now. - Narcotics worsening pain, Toradol for pain as well as needed - Phenergan for nausea PRN - Zofran for nausea PRN - CL diet trial. - CT findings of probably infarction of peritoneal fat, patient has no pain to lower abdomen or groin recently have R inguinal hernia repair. Continue to not have pain here. 2. HTN: - Monitor with IVF fluid administration - Elevated. Will monitor for now. VTE prophylaxis: Lovenox Dispo: 2 -3 days
[2019-11-19] MEDS ORDERED: Iopamidol 755 Mg/ML 100 ML Bottle IVPUSH STA (14:47)
--- NOTE | 2019-11-19 15:24 | CT ---
INDICATION: Abdominal pain. H/O pancreatitis. Leukocytosis. Tachycardia. CT ABDOMEN AND PELVIS WITH CONTRAST TECHNIQUE: Multidetector CT imaging was performed through the abdomen and pelvis following intravenous contrast administration using 100 mL Isovue 370. Coronal and sagittal reconstructions were generated. COMPARISON: 11/17/2019 CT abdomen and pelvis. FINDINGS: Lower chest: Lung bases are clear. Liver: Within normal limits. Gallbladder and bile ducts: Faint density within the gallbladder suggesting gallbladder sludge or vicarious excretion of previously administered IV contrast. No gallbladder wall thickening or calcified gallstones. No biliary dilation identified. Pancreas: Unremarkable. No CT evidence of pancreatitis. Spleen: Normal. Adrenals: No nodules or masses. Kidneys, ureters, and urinary bladder: No renal masses or hydronephrosis. No bladder mass or definite wall thickening. Gastrointestinal tract, mesentery, and abdominal wall: Postoperative changes of Latrice-en-Y gastric bypass, as before. Images 63-81 of series 201 show swirling of the central mesentery with effacement of the superior mesenteric vein and superior mesenteric artery, raising the possibility of volvulus or internal hernia. There is no definite evidence of bowel obstruction, however, nor of bowel wall thickening to suggest ischemia. There are no findings suggestive of bowel malrotation. There is no evidence of appendicitis. Unchanged very small fat-containing umbilical and left inguinal hernias. Previously seen fluid within the right inguinal canal has resolved. Vascular structures: Normal for age. Peritoneum: Mild free fluid in the low pelvis, increased compared to the previous exam. No free air identified. Lymph nodes: No pathologically enlarged nodes identified. Reproductive organs: No pelvic masses. Bones: Minor spinal degenerative changes. IMPRESSION: 1. Status post Latrice-en-Y gastric bypass. 2. Nonspecific mild free fluid in the lower pelvis, increased from before. 3. Swirled appearance to the central mesentery with effacement of the superior mesenteric vein and superior mesenteric artery, raising concern for volvulus or internal hernia. No definite evidence of bowel obstruction or bowel ischemia, however. 4. Nonacute additional findings as detailed above. RAUL SQUIRES MD [employer] Dictated by Parvez Squires MD @ 11/19/2019 3:20:12 PM Dictated by: Parvez Suqires MD @ 11/19/2019 15:22:52 (Electronically Signed)
[2019-11-19] MEDS ORDERED: HYDROmorphone 1 MG/ML Syringe IVPUSH ONE (16:38)
[2019-11-19] MEDS ORDERED: Lactated Ringers 1,000 ML IV ONE (16:38)
--- NOTE | 2019-11-19 16:50 | PCM.DCSUM1 ---
Discharge Summary - Hospital Course Brief History: This 38-year-old male with past medical history of hypertension, gastric bypass, and abdominal hernia repair presented to the ER last evening with concerns of severe abdominal pain. This pain is located in the epigastric and left upper quadrant. He reports nausea and vomiting along with this and loss of appetite. He denies any diarrhea black or bloody bowel movements and no coffee-ground emesis. He reports that this has been going on for the last few days with worsening last night. He denies any history of this in the past. His gastric bypass was 1 year ago. Nothing makes the pain better except for rest. And eating makes it worse. He reports the pain is radiating to the back. No chest pain or shortness of breath no fevers or chills. No lower abdominal pain. No dysuria or trouble with urination. He denies alcohol use. Denies any current tobacco use was a previous smoker. No recreational drug use. In the ER lab work was obtained mild leukocytosis at 11,700 noted. Lipase was found to be elevated at 525. CT of his abdomen and pelvis were obtained which shows Nothing acute with pancreas. 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 He was given IV pain medication along with IV fluids. He will be admitted for acute pancreatitis. COVID swab negative in the ER. - Discharge Data Discharge Date: 11/19/19 Discharge Disposition: DC/Tfer to Acute Hospital 02 Condition: Stable - Referral to Home Health Primary Care Physician: PCP None - Discharge Diagnosis/Problem(s) (1) HTN (hypertension) SNOMED Code(s): 53413366 ICD Code: I10 - ESSENTIAL (PRIMARY) HYPERTENSION Status: Acute Current Visit: Yes (2) Pancreatitis SNOMED Code(s): 23755793 ICD Code: K85.90 - ACUTE PANCREATITIS WITHOUT NECROSIS OR INFECTION, UNSP Status: Acute Current Visit: Yes Qualifiers: Chronicity: acute Pancreatitis type: unspecified pancreatitis type Acute pancreatitis complication: no infection or necrosis Qualified Code(s): K85.90 - Acute pancreatitis without necrosis or infection, unspecified - Patient Summary/Data Hospital Course: Admitting Diagnoses: Pancreatitis Discharge Diagnoses: Possible volvulus Hx gastric bypass Darwin was admitted secondary to abdominal pain and pancreatitis. He was treated with aggressive IVF resuscitation and treated with Dilaudid and Toradol for pain. This morning leukocytosis noted with tachycardia. Pain remained the same no significant worsening. CT scan with contrast was repeated today, which shows possible volvulus. I discussed this case with Dr Smith, who is uncomfortable with patient history of Latrice en Y surgery in the past. I spoke with Dr Daily at [facility] due to their availability of gastric bypass surgeon. Dr Daily kindly accepted patient and requested transfer via helicopter for urgent surgical exploration. Dr Gotti and I spoke with patient regarding transfer and further care. He called and we spoke with her via on the phone regarding CT findings. He will be transferred via helicopter this afternoon. LR bolus given now with Dilaudid for pain management prior to transfer. Stephanie, - Patient Instructions Diet: NPO - Discharge Plan *PRESCRIPTION DRUG MONITORING PROGRAM REVIEWED*: Not Applicable *COPY OF PRESCRIPTION DRUG MONITORING REPORT IN PATIENT MICHAEL: Not Applicable Home Medications: Home Meds Lactated Ringers [Ringers, Lactated] 200 ml IV Q5H bag 11/19/19 [Rx] Piperacillin/Tazobactam [Piperacil-Tazobact] 3.375 gm IV Q6H adv 11/19/19 [Rx] Oxygen Therapy Mode: Room Air Referrals: PCP,None [Primary Care Provider] - - Discharge Summary/Plan Comment DC Time >30 min.: No - Patient Data Vitals - Most Recent: Last Vital Signs Temp 98.4 F 11/19/19 12:00 Pulse 118 H 11/19/19 12:00 Resp 16 11/19/19 12:00 BP 145/94 H 11/19/19 12:00 Pulse Ox 96 11/19/19 12:00 Weight - Most Recent: 101 kg I&O - Last 24 hours: Intake & Output 11/19/19 11/19/19 11/19/19 06:59 14:59 22:59 Intake Total 2200 550 2200 Output Total 500 Balance 8346 105 8759 Lab Results - Last 24 hrs: Laboratory Results - last 24 hr 11/18/19 11/18/19 11/19/19 Range/Units 17:47 23:49 04:55 WBC 16.86 H (4.0-11.0) K/uL RBC 4.71 (4.50-5.90) M/uL Hgb 12.8 L (13.0-17.0) g/dL Hct 38.6 (38.0-50.0) % MCV 82.0 (80.0-98.0) fL MCH 27.2 (27.0-32.0) pg MCHC 33.2 (31.0-37.0) g/dL RDW Std Deviation 37.8 (28.0-62.0) fl RDW Coeff of Alicja 13 (11.0-15.0) % Plt Count 401 H (150-400) K/uL MPV 10.90 (7.40-12.00) fL Neut % (Auto) 82.9 H (48.0-80.0) % Lymph % (Auto) 8.3 L (16.0-40.0) % Redwood % (Auto) 8.6 (0.0-15.0) % Eos % (Auto) 0.1 (0.0-7.0) % Baso % (Auto) 0.1 (0.0-1.5) % Neut # (Auto) 14.0 H (1.4-5.7) K/uL Lymph # (Auto) 1.4 (0.6-2.4) K/uL Redwood # (Auto) 1.5 H (0.0-0.8) K/uL Eos # (Auto) 0.0 (0.0-0.7) K/uL Baso # (Auto) 0.0 (0.0-0.1) K/uL Nucleated RBC % 0.0 /100WBC Nucleated RBCs # 0 K/uL Sodium (136-148) mmol/L Potassium (3.5-5.1) mmol/L Chloride (98-107) mmol/L Carbon Dioxide (21.0-32.0) mmol/L BUN (7.0-18.0) mg/dL Creatinine (0.8-1.3) mg/dL Est Cr Clr Drug Dosing mL/min Estimated GFR (MDRD) ml/min Glucose (74-106) mg/dL POC Glucose 111 H 125 H (60-110) mg/dL Calcium (8.5-10.1) mg/dL Magnesium (1.8-2.4) mg/dL Total Bilirubin (0.2-1.0) mg/dL AST (15-37) IU/L ALT (14-63) IU/L Alkaline Phosphatase (46-116) U/L Total Protein (6.4-8.2) g/dL Albumin (3.4-5.0) g/dL Globulin (2.6-4.0) g/dL Albumin/Globulin Ratio (0.9-1.6) 11/19/19 11/19/19 11/19/19 Range/Units 04:55 06:06 11:47 WBC (4.0-11.0) K/uL RBC (4.50-5.90) M/uL Hgb (13.0-17.0) g/dL Hct (38.0-50.0) % MCV (80.0-98.0) fL MCH (27.0-32.0) pg MCHC (31.0-37.0) g/dL RDW Std Deviation (28.0-62.0) fl RDW Coeff of Alicja (11.0-15.0) % Plt Count (150-400) K/uL MPV (7.40-12.00) fL Neut % (Auto) (48.0-80.0) % Lymph % (Auto) (16.0-40.0) % Redwood % (Auto) (0.0-15.0) % Eos % (Auto) (0.0-7.0) % Baso % (Auto) (0.0-1.5) % Neut # (Auto) (1.4-5.7) K/uL Lymph # (Auto) (0.6-2.4) K/uL Redwood # (Auto) (0.0-0.8) K/uL Eos # (Auto) (0.0-0.7) K/uL Baso # (Auto) (0.0-0.1) K/uL Nucleated RBC % /100WBC Nucleated RBCs # K/uL Sodium 135 L (136-148) mmol/L Potassium 3.9 (3.5-5.1) mmol/L Chloride 99 (98-107) mmol/L Carbon Dioxide 26.6 (21.0-32.0) mmol/L BUN 13 (7.0-18.0) mg/dL Creatinine 0.9 (0.8-1.3) mg/dL Est Cr Clr Drug Dosing 124.54 mL/min Estimated GFR (MDRD) > 60.0 ml/min Glucose 143 H (74-106) mg/dL POC Glucose 144 H 119 H (60-110) mg/dL Calcium 8.9 (8.5-10.1) mg/dL Magnesium 1.8 (1.8-2.4) mg/dL Total Bilirubin 0.5 (0.2-1.0) mg/dL AST 16 (15-37) IU/L ALT 28 (14-63) IU/L Alkaline Phosphatase 56 (46-116) U/L Total Protein 7.0 (6.4-8.2) g/dL Albumin 4.0 (3.4-5.0) g/dL Globulin 3.0 (2.6-4.0) g/dL Albumin/Globulin Ratio 1.3 (0.9-1.6) Med Orders - Current: Current Medications Albuterol/Ipratropium (Duoneb 3.0-0.5 Mg/3 Ml) 3 ml NEB Q4HRRT PRN PRN Reason: Shortness Of Breath/wheezing Pantoprazole Sodium 40 mg/ (Sodium Chloride) 10 mls @ 300 mls/hr IV Q24H [facility] Last Admin: 11/18/19 22:23 Dose: 300 mls/hr Documented by: Lactated Ringer's (Ringers, Lactated) 1,000 mls @ 200 mls/hr IV Q5H [facility] Last Admin: 11/19/19 10:11 Dose: 200 mls/hr Documented by: Piperacillin Sod/Tazobactam (Sod 3.375 gm/ Sodium Chloride) 50 mls @ 100 mls/hr IV Q6H [facility] Last Admin: 11/19/19 16:15 Dose: 100 mls/hr Documented by: Lactated Ringer's (Ringers, Lactated) 1,000 mls @ 999 mls/hr IV .BOLUS ONE Stop: 11/19/19 17:38 Ketorolac Tromethamine (Toradol) 15 mg IVPUSH Q6H PRN PRN Reason: Pain Last Admin: 11/19/19 16:20 Dose: 15 mg Documented by: Ondansetron HCl (Zofran) 4 mg IVPUSH Q4H PRN PRN Reason: Nausea/Vomiting Last Admin: 11/19/19 16:22 Dose: 4 mg Documented by: Promethazine HCl (Phenergan) 12.5 mg IM Q6H PRN PRN Reason: Nausea Last Admin: 11/18/19 23:50 Dose: 12.5 mg Documented by: Sodium Chloride (Saline Flush) 2.5 ml FLUSH ASDIRECTED PRN PRN Reason: Keep Vein Open Discontinued Medications Diphenhydramine HCl (Benadryl) 50 mg IVPUSH ONETIME ONE Stop: 11/17/19 20:09 Last Admin: 11/17/19 20:16 Dose: 50 mg Documented by: Diphenhydramine HCl (Benadryl) 25 mg IVPUSH ONETIME ONE Stop: 11/18/19 05:32 Last Admin: 11/18/19 05:52 Dose: 25 mg Documented by: Enoxaparin Sodium (Lovenox) 40 mg SUBCUT Q24H [facility] Last Admin: 11/18/19 22:23 Dose: 40 mg Documented by: Famotidine (Pepcid) 20 mg IVPUSH ONETIME ONE Stop: 11/17/19 20:10 Last Admin: 11/17/19 20:16 Dose: 20 mg Documented by: Haloperidol Lactate (Haldol) 5 mg IM ONETIME ONE Stop: 11/17/19 20:09 Last Admin: 11/17/19 20:16 Dose: 5 mg Documented by: Haloperidol Lactate (Haldol) 5 mg IM ONETIME ONE Stop: 11/18/19 05:31 Last Admin: 11/18/19 05:52 Dose: 5 mg Documented by: Hydromorphone HCl (Dilaudid) 1 mg IVPUSH ONETIME ONE Stop: 11/17/19 20:29 Last Admin: 11/17/19 20:32 Dose: 1 mg Documented by: Hydromorphone HCl (Dilaudid) 0.5 mg IVPUSH Q3H PRN PRN Reason: Pain (severe 7-10) Last Admin: 11/18/19 05:08 Dose: 0.5 mg Documented by: Hydromorphone HCl (Dilaudid) 1 mg IVPUSH ONETIME ONE Stop: 11/18/19 05:31 Last Admin: 11/18/19 05:52 Dose: 1 mg Documented by: Hydromorphone HCl (Dilaudid) 0.5 mg IVPUSH Q3H PRN PRN Reason: Pain (severe 7-10) Last Admin: 11/18/19 08:24 Dose: 0.5 mg Documented by: Hydromorphone HCl (Dilaudid) 1 mg IVPUSH Q4H PRN PRN Reason: Pain Hydromorphone HCl (Dilaudid) 0.5 mg IVPUSH Q4H PRN PRN Reason: Pain Last Admin: 11/18/19 16:44 Dose: 0.5 mg Documented by: Hydromorphone HCl (Dilaudid) 1 mg IVPUSH ONETIME ONE Stop: 11/19/19 16:39 Lactated Ringer's (Ringers, Lactated) 1,000 mls @ 999 mls/hr IV .BOLUS ONE Stop: 11/17/19 21:10 Last Admin: 11/17/19 20:15 Dose: 999 mls/hr Documented by: Potassium Chloride 40 meq/ (Premix) 100 mls @ 25 mls/hr IV ONETIME ONE Stop: 11/18/19 02:58 Last Admin: 11/18/19 01:29 Dose: 25 mls/hr Documented by: Lactated Ringer's (Ringers, Lactated) 1,000 mls @ 125 mls/hr IV ASDIRECTED [facility] Last Admin: 11/18/19 00:37 Dose: 125 mls/hr Documented by: Lactated Ringer's (Ringers, Lactated) 1,000 mls @ 999 mls/hr IV BOLUS [facility] Stop: 11/19/19 09:31 Last Admin: 11/18/19 09:48 Dose: 999 mls/hr Documented by: Magnesium Sulfate (Magnesium Sulfate In Water Premix) 2 gm in 50 mls @ 50 mls/hr IV ONETIME ONE Stop: 11/18/19 12:59 Last Admin: 11/18/19 11:58 Dose: 50 mls/hr Documented by: Sodium Chloride (Normal Saline) 500 mls @ 999 mls/hr IV .BOLUS [facility] Last Admin: 11/19/19 09:39 Dose: 999 mls/hr Documented by: Influenza Virus Vaccine (Afluria Quad 2019- (3yr Up)) 60 mcg IM .ONCE ONE Stop: 11/18/19 09:01 Iopamidol (Isovue-370 (76%)) 100 ml IVPUSH ONETIME STA Stop: 11/17/19 21:31 Last Admin: 11/17/19 21:30 Dose: 100 ml Documented by: Iopamidol (Isovue-370 (76%)) 100 ml IVPUSH ONETIME STA Stop: 11/19/19 14:48 Last Admin: 11/19/19 14:49 Dose: 100 ml Documented by: Ketorolac Tromethamine (Toradol) 15 mg IVPUSH Q6H PRN PRN Reason: Pain Stop: 11/23/19 11:24 Last Admin: 11/18/19 18:29 Dose: 15 mg Documented by: Ketorolac Tromethamine (Toradol) 15 mg IVPUSH Q4HR PRN PRN Reason: Pain Stop: 11/23/19 18:41 Last Admin: 11/19/19 03:11 Dose: 15 mg Documented by: Morphine Sulfate (Morphine) 4 mg IVPUSH ONETIME ONE Stop: 11/17/19 22:36 Last Admin: 11/17/19 22:44 Dose: 4 mg Documented by: Morphine Sulfate (Morphine) 4 mg IVPUSH Q3H PRN PRN Reason: Pain Sodium Chloride (Saline Flush) 10 ml FLUSH ASDIRECTED PRN PRN Reason: Keep Vein Open Last Admin: 11/17/19 20:17 Dose: 10 ml Documented by: Sodium Chloride (Saline Flush) 2.5 ml FLUSH ASDIRECTED PRN PRN Reason: Keep Vein Open Last Admin: 11/17/19 20:17 Dose: 2.5 ml Documented by:
== END 2019-11-19 17:15 | DRG 438 ==
LOC: MW.ED 20:06 → MW.MS 23:29 → OBSVTOIN 11-18 11:42 → MW.MS 11-18 13:03
PROVIDERS: ADMIT Student in an Organized Health Care Education/Training Program; ATTEND Student in an Organized Health Care Education/Training Program
DX: K85.90 Acute pancreatitis without necrosis or infection, unspecified (principal); K56.2 Volvulus; Z20.828 Contact with and (suspected) exposure to other viral communicable diseases; I10 Essential (primary) hypertension; Z98.84 Bariatric surgery status; Z79.899 Other long term (current) drug therapy; Z88.1 Allergy status to other antibiotic agents; Z88.0 Allergy status to penicillin; Z98.890 Other specified postprocedural states
CPT/HCPCS: 36415; 74177; 74177-26; 76705; 76705-26; 80048; 80053; 80061; 81003; 82962; 83690; 83735; 84100; 84484; 85025; 96361; 96372; 96374; 96375; 96376; 99221; 99238; 99285; 99285-25; C9113; G0378; J1170; J1200; J1630; J1650; J1885; J2270; J2405; J2543; J2550; J3475; J3480; J3490; J7040; J7050; J7120; Q9967; U0002